=== PATIENT | female | born 1990 | race Caucasian/White ===

== ENCOUNTER 2017-03-12 18:36 | Emergency (ER) | payer OTHER ==
--- NOTE | 2017-03-12 19:12 | ED CLINICAL REPORT ---
Clinical Report - Physicians/Mid Levels [facility] [address] [place] [address] 03/12/2017 18:40 [id number] Time Seen: 19:16 Mar 12 2017. Arrived- By private vehicle. HISTORY OF PRESENT ILLNESS Chief Complaint: DENTAL PAIN. This started today and is still present. Pain described as mild. No mouth sores or nasal discharge. (, LMP Mid December, presents with dental pain since this morning, has had dental pain for a little bit. Denies difficulty swallowing. Denies any shortness of breath or chest pain. Patient denies any fevers. Reports some openings to the area recently. Denies facial swelling.). REVIEW OF SYSTEMS No fever or headache. All systems otherwise negative, except as recorded above. PAST HISTORY Problems: . Substance Abuse. Bronchitis. Myofascial Strain. Vaginal Bleeding. Additional Surgeries: no known surgeries. Medications: Plus Iron Oral. Vitamins Oral. Allergies: None. SOCIAL HISTORY Smoker- current status unknown. No alcohol use or drug use. ADDITIONAL NOTES The nursing notes have been reviewed. PHYSICAL EXAM Vital Signs: 03/12/2017 18:52 BP: 123/90. HR: 77. RR: 17. O2 saturation: 100%. Temp: 97.9 F. Pain level now: 4/10. Appearance: Alert. Head: Normal external inspection. ENT: Pharynx normal. Lips normal. Uvula midline. (Left lower gumline erythema, with tenderness, no palpable abscess or mass. Uvula midline. No lymphadenopathy.). Neck: Trachea midline. No adenopathy. No thyromegaly. CVS: Normal heart rate and rhythm. Heart sounds normal. Respiratory: No respiratory distress. Breath sounds normal. Abdomen: Gravid uterus palpable to just above pubic symphysis. Skin: Normal skin color. PROGRESS AND PROCEDURES Course of Care: NO signs of uvula swelling or any distress. Pt with no cough. No related complaints. Pt with no cough. Afebrile. NO signs of ludwigs angina. Patient is stable. Physical exam findings are unchanged. Symptoms better. Patient/family counseled. Disposition: Discharged. CLINICAL IMPRESSION First trimester ; positive test in emergency department. Moderate dental pain. INSTRUCTIONS Drink plenty of fluids. (avoid motrin follow up with dentist and OB). Prescription Medications: Amoxicillin 500 mg tablets: Take 1 orally every 8 hours for 10 days. Dispense thirty (30). No refills. vitamins: Take 1 orally every day. Dispense thirty (30). No refill. OTC Medications: Acetaminophen (available over the counter): take according to label instructions. Follow-up with: Corbin Baez MD, Obstetrics/Gynecology, , [facility], [address] [place] [address] (Electronically signed by Aminata Herrera P.A.-C 03/12/2017 19:42)
--- NOTE | 2017-03-12 19:12 | ED NURSING NOTES ---
Clinical Report - Nurses [facility] [address] [place] [address] 03/12/2017 18:40 Patient: JESIKA OLIVA TRIAGE Triage time 18:52 Mar 12 2017. Chief Complaint: LEFT LOWER TOOTHACHE and (pt reports brushing her teeth this morning and "something popped in my mouth" left lower). Alert. No acute distress. SEPSIS SCREEN: Sepsis Screen: negative. Negative (no infection suspected/documented). --18:58 Ayan Thompson R.N. 18:52 03/12/17. BP: 123/90. HR: 77. RR: 17. O2 saturation: 100%. Temp: 97.9 F. Pain level now: 03/02. --18:58 Ayan Thompson R.N. Weight: 50.8 kg stated. Height/Length: 64 inches Per Patient. BMI: 19.2. --18:51 Ayan Thompson R.N. Medications Vitamins Oral. --18:54 Ayan Thompson R.N. Plus Iron Oral. --18:54 Ayan Thompson R.N. Allergies None. --18:55 Ayan Thompson R.N. History Arrived by private vehicle. Historian: patient. Accompanied by friend. This started today. She has no dental appointment scheduled. She has a dental appointment scheduled (plan was to go to [facility] in [place]). She has had a toothache. 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 ("numbing medicine"). PAST MEDICAL HX: Immunizations: up-to-date. Last normal menstrual period- due per pt via pph 09/08/2017. Currently . G 4. P 3. SURGERY HX: No history of previous surgery. SOCIAL HX: Smoker- current status unknown. No alcohol use or drug use. No infectious disease exposure. ABUSE ASSESSMENT: No report of abuse. SELF HARM ASSESSMENT: A self harm assessment was performed. The patient answered "no" to the question "Have you recently felt down, depressed, or hopeless?", "Have you noticed less interest or pleasure in doing things?", "Do you have thoughts of harming or killing yourself?", "Are you here because you tried to hurt yourself?", "Have you ever tried to hurt yourself before today?", "Have you recently had thoughts about harming or killing others?" and "Do you have any dangerous items in your possession?". FALL RISK ASSESSMENT: Fall risk assessment completed. No fall risk identified. NUTRITIONAL RISK ASSESSMENT: The nutritional risk assessment revealed no deficiencies. FUNCTIONAL ASSESSMENT: Functional assessment: no impairments noted. LEARNING NEEDS ASSESSMENT: The learning needs assessment revealed no barriers. SKIN INTEGRITY ASSESSMENT: Skin integrity risk assessment completed. No skin integrity risk identified. --18:58 Ayan Thompson R.N. PROBLEMS: Substance Abuse. Bronchitis. Myofascial Strain. Vaginal Bleeding. --18:55 Ayan Thompson R.N. ADDITIONAL SURGERIES: no known surgeries. Interventions ID and allergy band on patient. To treatment room. --18:58 Ayan Thompson R.N. PHYSICAL ASSESSMENT Ambulatory to room. Patient gowned. GENERAL / NEURO / PSYCH: Alert. Oriented X 4. Appears in no acute distress. HEENT: Pupils equal, round and reactive to light. Voice within normal limits. Moderate dental tenderness. Extensive dental decay. Mucous membranes are pink. RESPIRATORY: Respirations not labored. CVS: Capillary refill less than 2 seconds. SKIN: Skin is warm and dry. Normal skin turgor. --18:59 Ayan Thompson R.N. NURSING PROGRESS NOTES Patient gowned. Head of bed elevated. Reassurance given. Two patient identifiers checked. Call light placed in reach. Side rails up x 1. Bed placed in lowest position. Brakes of bed on. Patient ready for evaluation- chart flagged. --18:59 Ayan Thompson R.N. 19:18 03/12/2017 Amoxicillin PO Capsules 500 mg given. Allergies verified and confirmed 5 rights. --19:20 Lynnette Sánchez R.N. 19:20 03/12/2017 Zofran ODT (Ondansetron) PO Oral Disintegrating Tablets 4 mg given. Allergies verified and confirmed 5 rights. --19:20 Lynnette Sánchez R.N. DISPOSITION / DISCHARGE No learning barriers present. Discharge instructions provided and reviewed with the patient. Reviewed medication(s) side effects and course information. Prescription(s) given to the patient. Reviewed need to stop smoking- provided smoking cessation counseling. Patient verbalized understanding. Written instructions provided in Singaporean. The patient was discharged by the physician promotions assistant sales marketing. She was discharged home and accompanied by radiology teacher. She left the Emergency Department ambulatory and via private vehicle. Driving (unknown). ( pt given rx and f/u, enc to stop smoking and f/u as directed per dc instructions). --19:33 Ayan Thompson R.N. 19:31 03/12/17. BP: 121/81 taken on the left arm, while sitting. HR: 72. RR: 17. O2 saturation: 99% on room air. Temp: 97.7 F (oral). Pain level now: 03/02. --19:33 Ayan Thompson R.N. Locked/Released at 03/12/2017 22:12 by Ayan Thompson R.N.
--- NOTE | 2017-03-12 19:12 | ED ORDER SUMMARY ---
..... Patient: JESIKA OLIVA OrderSheet [facility] VisitID: [id number] [place] [address] 26y, F Registration Date/Time: 03/12/2017 ORDER SHEET Weight: 50.8 kg (stated) Allergies: None GENERAL ORDERS: MEDICATION ORDERS: Amoxicillin PO 500 mg (NOW) (19:06 03/12/2017 Ginger P.A.-C) (Ack 19:14 RCollier R.N.) (19:20 RCollier R.N.) Zofran ODT PO 4 mg (NOW) (19:19 03/12/2017 Ginger Ying.A.-C) (19:20 RCollier R.N.) IV FLUIDS: ORDER SHEET NOTES: [Electronically signed by Aminata Herrera P.A.-C (19:42 03/12/2017)] [Electronically signed by Ayan Thompson R.N. (22:12 03/12/2017)] [Electronically locked/signed by Ayan Thompson R.N. (22:12 03/12/2017)]
--- NOTE | 2017-03-12 19:12 | ED ORDER SUMMARY ---
..... Patient: JESIKA OLIVA OrderSheet [facility] VisitID: [id number] [place] [address] 26y, F Registration Date/Time: 03/12/2017 ORDER SHEET Weight: 50.8 kg (stated) Allergies: None GENERAL ORDERS: MEDICATION ORDERS: Amoxicillin PO 500 mg (NOW) (19:06 03/12/2017 Ginger P.A.-C) (Ack 19:14 RCollier R.N.) (19:20 RCollier R.N.) Zofran ODT PO 4 mg (NOW) (19:19 03/12/2017 Ginger Ying.A.-C) (19:20 RCollier R.N.) IV FLUIDS: ORDER SHEET NOTES: [Electronically signed by Aminata Herrera P.A.-C (19:42 03/12/2017)] [Electronically signed by Ayan Thompson R.N. (22:12 03/12/2017)] [Electronically locked/signed by Ayan Thompson R.N. (22:12 03/12/2017)]
--- NOTE | 2017-03-12 19:12 | ED CLINICAL REPORT ---
Clinical Report - Physicians/Mid Levels [facility] [address] [place] [address] 03/12/2017 18:40 [id number] Time Seen: 19:16 Mar 12 2017. Arrived- By private vehicle. HISTORY OF PRESENT ILLNESS Chief Complaint: DENTAL PAIN. This started today and is still present. Pain described as mild. No mouth sores or nasal discharge. (, LMP Mid December, presents with dental pain since this morning, has had dental pain for a little bit. Denies difficulty swallowing. Denies any shortness of breath or chest pain. Patient denies any fevers. Reports some openings to the area recently. Denies facial swelling.). REVIEW OF SYSTEMS No fever or headache. All systems otherwise negative, except as recorded above. PAST HISTORY Problems: . Substance Abuse. Bronchitis. Myofascial Strain. Vaginal Bleeding. Additional Surgeries: no known surgeries. Medications: Plus Iron Oral. Vitamins Oral. Allergies: None. SOCIAL HISTORY Smoker- current status unknown. No alcohol use or drug use. ADDITIONAL NOTES The nursing notes have been reviewed. PHYSICAL EXAM Vital Signs: 03/12/2017 18:52 BP: 123/90. HR: 77. RR: 17. O2 saturation: 100%. Temp: 97.9 F. Pain level now: 4/10. Appearance: Alert. Head: Normal external inspection. ENT: Pharynx normal. Lips normal. Uvula midline. (Left lower gumline erythema, with tenderness, no palpable abscess or mass. Uvula midline. No lymphadenopathy.). Neck: Trachea midline. No adenopathy. No thyromegaly. CVS: Normal heart rate and rhythm. Heart sounds normal. Respiratory: No respiratory distress. Breath sounds normal. Abdomen: Gravid uterus palpable to just above pubic symphysis. Skin: Normal skin color. PROGRESS AND PROCEDURES Course of Care: NO signs of uvula swelling or any distress. Pt with no cough. No related complaints. Pt with no cough. Afebrile. NO signs of ludwigs angina. Patient is stable. Physical exam findings are unchanged. Symptoms better. Patient/family counseled. Disposition: Discharged. CLINICAL IMPRESSION First trimester ; positive test in emergency department. Moderate dental pain. INSTRUCTIONS Drink plenty of fluids. (avoid motrin follow up with dentist and OB). Prescription Medications: Amoxicillin 500 mg tablets: Take 1 orally every 8 hours for 10 days. Dispense thirty (30). No refills. vitamins: Take 1 orally every day. Dispense thirty (30). No refill. OTC Medications: Acetaminophen (available over the counter): take according to label instructions. Follow-up with: Corbin Baez MD, Obstetrics/Gynecology, , [facility], [address] [place] [address] (Electronically signed by Aminata Herrera P.A.-C 03/12/2017 19:42)
--- NOTE | 2017-03-12 19:12 | ED NURSING NOTES ---
Clinical Report - Nurses [facility] [address] [place] [address] 03/12/2017 18:40 Patient: JESIKA OLIVA TRIAGE Triage time 18:52 Mar 12 2017. Chief Complaint: LEFT LOWER TOOTHACHE and (pt reports brushing her teeth this morning and "something popped in my mouth" left lower). Alert. No acute distress. SEPSIS SCREEN: Sepsis Screen: negative. Negative (no infection suspected/documented). --18:58 Ayan Thompson R.N. 18:52 03/12/17. BP: 123/90. HR: 77. RR: 17. O2 saturation: 100%. Temp: 97.9 F. Pain level now: 03/02. --18:58 Ayan Thompson R.N. Weight: 50.8 kg stated. Height/Length: 64 inches Per Patient. BMI: 19.2. --18:51 Ayan Thompson R.N. Medications Vitamins Oral. --18:54 Ayan Thompson R.N. Plus Iron Oral. --18:54 Ayan Thompson R.N. Allergies None. --18:55 Ayan Thompson R.N. History Arrived by private vehicle. Historian: patient. Accompanied by friend. This started today. She has no dental appointment scheduled. She has a dental appointment scheduled (plan was to go to [facility] in [place]). She has had a toothache. 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 ("numbing medicine"). PAST MEDICAL HX: Immunizations: up-to-date. Last normal menstrual period- due per pt via pph 09/08/2017. Currently . G 4. P 3. SURGERY HX: No history of previous surgery. SOCIAL HX: Smoker- current status unknown. No alcohol use or drug use. No infectious disease exposure. ABUSE ASSESSMENT: No report of abuse. SELF HARM ASSESSMENT: A self harm assessment was performed. The patient answered "no" to the question "Have you recently felt down, depressed, or hopeless?", "Have you noticed less interest or pleasure in doing things?", "Do you have thoughts of harming or killing yourself?", "Are you here because you tried to hurt yourself?", "Have you ever tried to hurt yourself before today?", "Have you recently had thoughts about harming or killing others?" and "Do you have any dangerous items in your possession?". FALL RISK ASSESSMENT: Fall risk assessment completed. No fall risk identified. NUTRITIONAL RISK ASSESSMENT: The nutritional risk assessment revealed no deficiencies. FUNCTIONAL ASSESSMENT: Functional assessment: no impairments noted. LEARNING NEEDS ASSESSMENT: The learning needs assessment revealed no barriers. SKIN INTEGRITY ASSESSMENT: Skin integrity risk assessment completed. No skin integrity risk identified. --18:58 Ayan Thompson R.N. PROBLEMS: Substance Abuse. Bronchitis. Myofascial Strain. Vaginal Bleeding. --18:55 Ayan Thompson R.N. ADDITIONAL SURGERIES: no known surgeries. Interventions ID and allergy band on patient. To treatment room. --18:58 Ayan Thompson R.N. PHYSICAL ASSESSMENT Ambulatory to room. Patient gowned. GENERAL / NEURO / PSYCH: Alert. Oriented X 4. Appears in no acute distress. HEENT: Pupils equal, round and reactive to light. Voice within normal limits. Moderate dental tenderness. Extensive dental decay. Mucous membranes are pink. RESPIRATORY: Respirations not labored. CVS: Capillary refill less than 2 seconds. SKIN: Skin is warm and dry. Normal skin turgor. --18:59 Ayan Thompson R.N. NURSING PROGRESS NOTES Patient gowned. Head of bed elevated. Reassurance given. Two patient identifiers checked. Call light placed in reach. Side rails up x 1. Bed placed in lowest position. Brakes of bed on. Patient ready for evaluation- chart flagged. --18:59 Ayan Thompson R.N. 19:18 03/12/2017 Amoxicillin PO Capsules 500 mg given. Allergies verified and confirmed 5 rights. --19:20 Lynnette Sánchez R.N. 19:20 03/12/2017 Zofran ODT (Ondansetron) PO Oral Disintegrating Tablets 4 mg given. Allergies verified and confirmed 5 rights. --19:20 Lynnette Sánchez R.N. DISPOSITION / DISCHARGE No learning barriers present. Discharge instructions provided and reviewed with the patient. Reviewed medication(s) side effects and course information. Prescription(s) given to the patient. Reviewed need to stop smoking- provided smoking cessation counseling. Patient verbalized understanding. Written instructions provided in Czech. The patient was discharged by the physician nutritional assistant. She was discharged home and accompanied by utility teller. She left the Emergency Department ambulatory and via private vehicle. Driving (unknown). ( pt given rx and f/u, enc to stop smoking and f/u as directed per dc instructions). --19:33 Ayan Thompson R.N. 19:31 03/12/17. BP: 121/81 taken on the left arm, while sitting. HR: 72. RR: 17. O2 saturation: 99% on room air. Temp: 97.7 F (oral). Pain level now: 03/02. --19:33 Ayan Thompson R.N. Locked/Released at 03/12/2017 22:12 by Ayan Thompson R.N.
--- NOTE | 2017-03-12 22:12 | ED MED RECONCILIATION SUMMARY ---
Patient: JESIKA OLIVA Medication Reconciliation Report [facility] VisitID: [id number] [place] [address] 26y, F Registration Date/Time: 03/12/2017 Weight: 50.8 kg Height/Length: 64 in. BMI: 19.2 ALLERGIES: None The patient's Home Medications are listed below: THE FOLLOWING MEDICATIONS NEED TO BE RECONCILED: Plus Iron Oral Vitamins Oral The source(s) of the original Home Medication information: Not obtained. The following Medications were given to the patient in the Emergency Department: Amoxicillin [PO] PO 500 mg, administered: 03/12/2017 7:18:00 PM Zofran ODT [PO] PO 4 mg, administered: 03/12/2017 7:20:00 PM The following Medications were prescribed to the patient: Acetaminophen (available over the counter): take according to label instructions. -- Aminata Herrera P.A.-Daisy Amoxicillin 500 mg tablets: Take 1 orally every 8 hours for 10 days. Dispense thirty (30). No refills. -- Aminata Herrera, P.A.-C vitamins: Take 1 orally every day. Dispense thirty (30). No refill. -- Aminata Herrera P.A.-C
--- NOTE | 2017-03-12 22:12 | ED MED RECONCILIATION SUMMARY ---
Patient: JESIKA OLIVA Medication Reconciliation Report [facility] VisitID: [id number] [place] [address] 26y, F Registration Date/Time: 03/12/2017 Weight: 50.8 kg Height/Length: 64 in. BMI: 19.2 ALLERGIES: None The patient's Home Medications are listed below: THE FOLLOWING MEDICATIONS NEED TO BE RECONCILED: Plus Iron Oral Vitamins Oral The source(s) of the original Home Medication information: Not obtained. The following Medications were given to the patient in the Emergency Department: Amoxicillin [PO] PO 500 mg, administered: 03/12/2017 7:18:00 PM Zofran ODT [PO] PO 4 mg, administered: 03/12/2017 7:20:00 PM The following Medications were prescribed to the patient: Acetaminophen (available over the counter): take according to label instructions. -- Aminata Herrera P.A.-Daisy Amoxicillin 500 mg tablets: Take 1 orally every 8 hours for 10 days. Dispense thirty (30). No refills. -- Aminata Herrera, P.A.-C vitamins: Take 1 orally every day. Dispense thirty (30). No refill. -- Aminata Herrera P.A.-C
--- NOTE | 2017-03-12 22:12 | ED MAR SUMMARY ---
..... Medication Administration Record [facility] [address] [place] [address] Patient: JESIKA OLIVA Visit ID: [id number] 26y, F Weight: 50.8 kg Height/Length: 64 in BMI: 19.2 ALLERGIES: None Given 19:03/12/2017 Lynnette Sánchez, R.N. Medication Administered: AMOXICILLIN [PO], Dose: 500 mg Capsules PO. Medication Ordered: Amoxicillin PO 500 mg (NOW). Given 19:03/12/2017 Lynnette Sánchez, R.N. Medication Administered: ZOFRAN ODT [PO] (ONDANSETRON), Dose: 4 mg Oral Disintegrating Tablets PO. Medication Ordered: Zofran ODT PO 4 mg (NOW).
--- NOTE | 2017-03-12 22:12 | ED DISCHARGE INSTRUCTIONS ---
Patient: JESIKA OLIVA General Instructions [facility] VisitID: [id number] [place] [address] 26y, [place] Registration Date/Time: 03/12/2017 First trimester ; positive test in emergency department. Moderate dental pain. INSTRUCTIONS Drink plenty of fluids. (avoid motrin follow up with dentist and OB). Prescription Medications: Amoxicillin 500 mg tablets: Take 1 orally every 8 hours for 10 days. Dispense thirty (30). No refills. vitamins: Take 1 orally every day. Dispense thirty (30). No refill. OTC Medications: Acetaminophen (available over the counter): take according to label instructions. Follow-up with: Corbin Baez MD, Obstetrics/Gynecology, , [facility], [address] [place] [address] ADDITIONAL INFORMATION Dental Pain A crack or cavity in the tooth, which exposes the sensitive inner area of the tooth can cause tooth pain. An infection in the gum or the root of the tooth can cause pain and swelling. The pain is often made worse by drinking hot or cold fluids, or biting on hard foods. Pain may spread from the tooth to the ear or jaw on the same side. Home Care: Avoid hot and cold foods and liquids since your tooth may be sensitive to temperature changes. If your tooth is chipped or cracked, or if there is a large open cavity, apply OIL OF CLOVES (available [id number] in drug stores) directly to the tooth to reduce pain. Some pharmacies carry an [id number] "toothache kit." This contains a paste, which can be applied over the exposed tooth to decrease sensitivity. A cold pack on your jaw over the sore area may help reduce pain. You may use acetaminophen (Tylenol) or ibuprofen (Motrin, Advil) to control pain, unless another medicine was prescribed. [ NOTE: If you have chronic liver or kidney disease or ever had a stomach ulcer or GI bleeding, talk with your doctor before using these medicines.] If you have signs of an infection, an antibiotic will be given. Take it as directed. Follow-Up as directed with a dentist. Your pain may go away with the treatment given. However, only a dentist can fully evaluate and treat the cause and prevent the pain from coming back again. TOOTHACHE IS A SIGN OF DISEASE IN YOUR TOOTH AND SHOULD BE EXAMINED AND TREATED BY A DENTIST. Get Prompt Medical Attention if any of the following occur: Your face becomes swollen or red Pain worsens or spreads to the neck Fever over 100.4 F (38.0 C) Unusual drowsiness; headache or stiff neck; weakness or fainting Pus drains from the tooth Difficulty swallowing or breathing You have been given the following additional information: Dental Pain (Electronically signed by Aminata Herrera P.A.-C 03/12/2017 19:42)
--- NOTE | 2017-03-12 22:12 | ED MAR SUMMARY ---
..... Medication Administration Record [facility] [address] [place] [address] Patient: JESIKA OLIVA Visit ID: [id number] 26y, F Weight: 50.8 kg Height/Length: 64 in BMI: 19.2 ALLERGIES: None Given 19:03/12/2017 Lynnette Sánchez, R.N. Medication Administered: AMOXICILLIN [PO], Dose: 500 mg Capsules PO. Medication Ordered: Amoxicillin PO 500 mg (NOW). Given 19:03/12/2017 Lynnette Sánchez, R.N. Medication Administered: ZOFRAN ODT [PO] (ONDANSETRON), Dose: 4 mg Oral Disintegrating Tablets PO. Medication Ordered: Zofran ODT PO 4 mg (NOW).
--- NOTE | 2017-03-12 22:12 | ED DISCHARGE INSTRUCTIONS ---
Patient: JESIKA OLIVA General Instructions [facility] VisitID: [id number] [place] [address] 26y, F Registration Date/Time: 03/12/2017 First trimester ; positive test in emergency department. Moderate dental pain. INSTRUCTIONS Drink plenty of fluids. (avoid motrin follow up with dentist and OB). Prescription Medications: Amoxicillin 500 mg tablets: Take 1 orally every 8 hours for 10 days. Dispense thirty (30). No refills. vitamins: Take 1 orally every day. Dispense thirty (30). No refill. OTC Medications: Acetaminophen (available over the counter): take according to label instructions. Follow-up with: Corbin Baez MD, Obstetrics/Gynecology, , [facility], [address] [place] [address] ADDITIONAL INFORMATION Dental Pain A crack or cavity in the tooth, which exposes the sensitive inner area of the tooth can cause tooth pain. An infection in the gum or the root of the tooth can cause pain and swelling. The pain is often made worse by drinking hot or cold fluids, or biting on hard foods. Pain may spread from the tooth to the ear or jaw on the same side. Home Care: Avoid hot and cold foods and liquids since your tooth may be sensitive to temperature changes. If your tooth is chipped or cracked, or if there is a large open cavity, apply OIL OF CLOVES (available dmre-esn-gbtbgcc in drug stores) directly to the tooth to reduce pain. Some pharmacies carry an cfxe-puz-iigwlhf "toothache kit." This contains a paste, which can be applied over the exposed tooth to decrease sensitivity. A cold pack on your jaw over the sore area may help reduce pain. You may use acetaminophen (Tylenol) or ibuprofen (Motrin, Advil) to control pain, unless another medicine was prescribed. [ NOTE: If you have chronic liver or kidney disease or ever had a stomach ulcer or GI bleeding, talk with your doctor before using these medicines.] If you have signs of an infection, an antibiotic will be given. Take it as directed. Follow-Up as directed with a dentist. Your pain may go away with the treatment given. However, only a dentist can fully evaluate and treat the cause and prevent the pain from coming back again. TOOTHACHE IS A SIGN OF DISEASE IN YOUR TOOTH AND SHOULD BE EXAMINED AND TREATED BY A DENTIST. Get Prompt Medical Attention if any of the following occur: Your face becomes swollen or red Pain worsens or spreads to the neck Fever over 100.4 F (38.0 C) Unusual drowsiness; headache or stiff neck; weakness or fainting Pus drains from the tooth Difficulty swallowing or breathing You have been given the following additional information: Dental Pain (Electronically signed by Aminata Herrera P.A.-C 03/12/2017 19:42)
== END 2017-03-12 19:27 | disposition home or self-care (01) ==
LOC: ED SRH 18:36
DX: O26.891 Other specified pregnancy related conditions, first trimester (principal); K08.89 Other specified disorders of teeth and supporting structures

== ENCOUNTER 2017-04-25 13:27 | Emergency (ER) | payer OTHER ==
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
--- NOTE | 2017-04-25 13:56 | ED ORDER SUMMARY ---
..... Patient: JESIKA OLIVA OrderSheet [facility] VisitID: [id number] [place] [address] 26y, F Registration Date/Time: 04/25/2017 ORDER SHEET Weight: 49.4 kg (stated) Allergies: None GENERAL ORDERS: MEDICATION ORDERS: Keflex PO 500 mg (NOW) (13:46 04/25/2017 Duyen Villarreal) (13:48 Guillermina R.N.) Clindamycin PO 450 mg (NOW) (13:46 04/25/2017 Duyen Villarreal) (13:49 Guillermina R.N.) Phenergan PO 25 mg (HIGH ALERT MEDICATION, NOW) (13:46 04/25/2017 Duyen Villarreal) (13:49 Guillermina R.N.) IV FLUIDS: ORDER SHEET NOTES: [Electronically signed by Lg Villagomez Dr. (09:33 04/28/2017)] [Electronically signed by Ayan Thompson R.N. (17:45 04/29/2017)] [Electronically locked/signed by Ayan Thompson R.N. (17:45 04/29/2017)]
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
--- NOTE | 2017-04-25 13:56 | ED ORDER SUMMARY ---
..... Patient: JESIKA OLIVA OrderSheet [facility] VisitID: [id number] [place] [address] 26y, F Registration Date/Time: 04/25/2017 ORDER SHEET Weight: 49.4 kg (stated) Allergies: None GENERAL ORDERS: MEDICATION ORDERS: Keflex PO 500 mg (NOW) (13:46 04/25/2017 Duyen Villarreal) (13:48 Guillermina R.N.) Clindamycin PO 450 mg (NOW) (13:46 04/25/2017 Duyen Villarreal) (13:49 Guillermina R.N.) Phenergan PO 25 mg (HIGH ALERT MEDICATION, NOW) (13:46 04/25/2017 Duyen Villarreal) (13:49 Guillermina R.N.) IV FLUIDS: ORDER SHEET NOTES: [Electronically signed by Lg Villagomez Dr. (09:33 04/28/2017)] [Electronically signed by Ayan Thompson R.N. (17:45 04/29/2017)] [Electronically locked/signed by Ayan Thompson R.N. (17:45 04/29/2017)]
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
--- NOTE | 2017-04-29 17:45 | ED DISCHARGE INSTRUCTIONS ---
Patient: JESIKA OLIVA General Instructions [facility] VisitID: [id number] [address], [place] [address] 26y, F Registration Date/Time: 04/25/2017 Cellulitis of the left hand. INSTRUCTIONS Warnings: GENERAL WARNINGS: Return or contact your physician immediately if your condition worsens or changes unexpectedly, if not improving as expected, or if other problems arise. Specifically return if pain, vomiting, bleeding, breathing difficulty or fever. Your Current Medications: CONTINUE TAKING THE FOLLOWING MEDICATIONS: Methadone HCl Oral : 30 mg daily. Vitamins Oral. Prescription Medications: Clindamycin 150 mg: take 3 capsules orally every 8 hours for 10 days. No refill. (disp suff quant) Keflex 500 mg: take 1 capsule orally every 8 hours for 10 days. No refill. Substitution is permissible. (disp suff quant) Phenergan Tablets 25 mg: take 1 tablet orally every 8 hours as needed for nausea and vomiting. Dispense thirty (30). No refill. Substitution is permissible Follow-up: Return to the emergency department as needed. Follow up with your doctor in three days. Reason for referral: recheck today's concerns. Summary of care provided to patient via paper. Screening today revealed the patient's blood pressure to be in the normal range. The patient should follow up with a primary care provider for blood pressure management. Understanding of the discharge instructions verbalized by patient. Follow-up with: [facility], , , [address], , [place], [id number] Follow up. Reason for referral: contact for follow up if you can not see your primary care doctor. Summary of care provided to patient via paper. ADDITIONAL INFORMATION Cellulitis You have an infection of the skin known as cellulitis. This usually starts with a scrape, cut, insect bite, blister or other opening in the skin which becomes infected. This is a serious condition. It must be watched closely to be sure the infection is not spreading. With antibiotic treatment, the size of the red area will gradually shrink in size until the skin returns to normal. This will take 7-10 days. The red area should never increase in size once the antibiotic medicine has been started. Occasionally, an infection will be resistant to one antibiotic and another one will have to be used. Home Care: 1) Limit the use of the affected part, since excess movement can cause the infection to spread. 2) If the infection is on your leg, walk as little as possible during the first few days of the treatment. Keep your leg elevated while sitting. This will reduce swelling. 3) Take all of the antibiotic medicine exactly as directed until it is gone. Be careful not to miss any doses, especially during the first seven days. Follow Up with your doctor or this facility as directed. Check the infected area daily for the warning signs listed below. Get Prompt Medical Attention if any of the following occur: -- Spreading area of redness -- Increasing swelling or pain -- Appearance of pus or drainage -- Fever over 100.4 F (38.0 C) oral, or over 101.4 F (38.6 C) rectal, after two days on antibiotics Staph Infection (MRSA) "Staph" is the short name for the common bacteria called "staphylococcus aureus". Staph bacteria are often present on the skin without causing an infection. If it gets under the skin an infection occurs. This causes redness, tenderness, swelling and sometimes fluid drainage. MRSA stands for "Methicillin-Resistant Staph Aureus". Unlike a common staph infection, MRSA bacteria are resistant to the usual antibiotics and harder to treat. Also, MRSA is more toxic than common staph bacteria. It can spread quickly throughout the body and cause a life-threatening illness. MRSA is spread to others by direct physical contact with the bacteria. MRSA can also be transmitted from items contaminated by a person who has the bacteria, such as bandages, towels, bed sheets, or sports equipment. It is not spread through the air. Once you have a MRSA skin infection, you are at risk of having it recur in the future. If MRSA infection is suspected, the doctor may take a wound culture to confirm the diagnosis. Any abscess will be drained. One or sometimes two antibiotics that work against MRSA will be prescribed. Home Care: 1) Take any antibiotics prescribed exactly as directed until they are gone. 2) Follow the same washing procedures as outlined for Household Members below. 3) Keep draining wounds covered with clean, dry bandages. Change dressings as they become soiled. 4) You and those in contact with you should wash their hands frequently with soap and warm water or use an alcohol-based hand heel stainer. Do this after each time you change the bandage or touch the wound. 5) Avoid sharing personal items such as towels, washcloths, razors, clothing, or uniforms. Wash soiled sheets, towels or clothes in hot water with laundry detergent. Use an automatic clothes dryer set on high to kill any remaining bacteria. 6) Remove any artificial nails and nail [place]. 7) If you use a gym, wipe down equipment before and after each use. Treatment Of Household Members If you have been diagnosed with possible MRSA infection, those living with you are at higher risk of carrying the bacteria on their skin or in their nose, even if there is no sign of infection. Bacteria must be removed from the skin of all household members (including you) at the same time, so that it is not passed back and forth. Advise them to remove the bacteria as follows: Wash your whole body (scalp to toes) daily for five days with Hibiclens (chlorhexidine). Scrub fingernails with a brush for one minute twice a day. If any skin infections are present (boils, abscess, infected cut) these must be treated by a doctor. Washing alone will not treat a MRSA infection. Clean counter tops and children's toys; do not share personal items such as toothbrush and razors. It is okay to share glasses, plates, utensils. If antibiotic ointment was prescribed use it as directed. Follow Up with your doctor or as advised by our staff. If a wound culture was taken, call as directed in two days to obtain the results. If the culture result is positive for MRSA, tell medical personnel in the future that you were treated for this type of infection. Get Prompt Medical Attention if any of the following occur: -- Increasing redness, swelling or pain -- Red streaks in the skin around the wound -- Weakness or dizziness -- New appearance of pus or drainage from the wound -- New fever over 100.4 F (38.0 C) Clindamycin Hydrochloride Oral capsule What is this medicine? CLINDAMYCIN (KLIN da MYE sin) is a lincosamide antibiotic. It is used to treat certain kinds of bacterial infections. It will not work for colds, flu, or other viral infections. How should I use this medicine? Take this medicine by mouth with a full glass of water. Follow the directions on the prescription label. You can take this medicine with food or on an empty stomach. If the medicine upsets your stomach, take it with food. Take your medicine at regular intervals. Do not take your medicine more often than directed. Take all of your medicine as directed even if you think your are better. Do not skip doses or stop your medicine early. Talk to your damage prevention coordinator regarding the use of this medicine in children. Special care may be needed. What side effects may I notice from receiving this medicine? Side effects that you should report to your doctor or health regular senior care provider as soon as possible: allergic reactions like skin rash, itching or hives, swelling of the face, lips, or tongue dark urine pain on swallowing redness, blistering, peeling or loosening of the skin, including inside the mouth unusual bleeding or bruising unusually weak or tired yellowing of eyes or skin Side effects that usually do not require medical attention (report to your doctor or health regular senior care provider if they continue or are bothersome): diarrhea itching in the rectal or genital area joint pain nausea, vomiting stomach pain What may interact with this medicine? chloramphenicol erythromycin kaolin products What if I miss a dose? If you miss a dose, take it as soon as you can. If it is almost time for your next dose, take only that dose. Do not take double or extra doses. Where should I keep my medicine? Keep out of the reach of children. Store at room temperature between 20 and 25 degrees C (68 and 77 degrees F). Throw away any unused medicine after the expiration date. What should I tell my health care provider before I take this medicine? They need to know if you have any of these conditions: kidney disease liver disease stomach problems like colitis an unusual or allergic reaction to clindamycin, lincomycin, or other medicines, foods, dyes like tartrazine or preservatives or trying to get breast-feeding What should I watch for while using this medicine? Tell your doctor or healthcare professional if your symptoms do not start to get better or if they get worse. Do not treat diarrhea with over the counter products. Contact your doctor if you have diarrhea that lasts more than 2 days or if it is severe and watery. Cephalexin Monohydrate Oral tablet What is this medicine? CEPHALEXIN (sef a FELIPA in) is a cephalosporin antibiotic. It is used to treat certain kinds of bacterial infections It will not work for colds, flu, or other viral infections. How should I use this medicine? Take this medicine by mouth with a full glass of water. Follow the directions on the prescription label. This medicine can be taken with or without food. Take your medicine at regular intervals. Do not take your medicine more often than directed. Take all of your medicine as directed even if you think you are better. Do not skip doses or stop your medicine early. Talk to your damage prevention coordinator regarding the use of this medicine in children. While this drug may be prescribed for selected conditions, precautions do apply. What side effects may I notice from receiving this medicine? Side effects that you should report to your doctor or health regular senior care provider as soon as possible: allergic reactions like skin rash, itching or hives, swelling of the face, lips, or tongue breathing problems pain or trouble passing urine redness, blistering, peeling or loosening of the skin, including inside the mouth severe or watery diarrhea unusually weak or tired yellowing of the eyes, skin Side effects that usually do not require medical attention (report to your doctor or health regular senior care provider if they continue or are bothersome): gas or heartburn genital or anal irritation headache joint or muscle pain nausea, vomiting What may interact with this medicine? probenecid some other antibiotics What if I miss a dose? If you miss a dose, take it as soon as you can. If it is almost time for your next dose, take only that dose. Do not take double or extra doses. There should be at least 4 to 6 hours between doses. Where should I keep my medicine? Keep out of the reach of children. Store at room temperature between 59 and 86 degrees F (15 and 30 degrees C). Throw away any unused medicine after the expiration date. What should I tell my health care provider before I take this medicine? They need to know if you have any of these conditions: kidney disease stomach or intestine problems, especially colitis an unusual or allergic reaction to cephalexin, other cephalosporins, penicillins, other antibiotics, medicines, foods, dyes or preservatives or trying to get breast-feeding What should I watch for while using this medicine? Tell your doctor or health regular senior care provider if your symptoms do not begin to improve in a few days. Do not treat diarrhea with over the counter products. Contact your doctor if you have diarrhea that lasts more than 2 days or if it is severe and watery. If you have diabetes, you may get a false-positive result for sugar in your urine. Check with your doctor or health regular senior care provider. Promethazine Hydrochloride Oral tablet What is this medicine? PROMETHAZINE (proe METH a zeen) is an antihistamine. It is used to treat allergic reactions and to treat or prevent nausea and vomiting from illness or motion sickness. It is also used to make you sleep before surgery, and to help treat pain or nausea after surgery. How should I use this medicine? Take this medicine by mouth with a glass of water. Follow the directions on the prescription label. Take your doses at regular intervals. Do not take your medicine more often than directed. Talk to your damage prevention coordinator regarding the use of this medicine in children. Special care may be needed. This medicine should not be given to infants and children younger than 2 years old. What side effects may I notice from receiving this medicine? Side effects that you should report to your doctor or health regular senior care provider as soon as possible: blurred vision irregular heartbeat, palpitations or chest pain muscle or facial twitches pain or difficulty passing urine seizures skin rash slowed or shallow breathing unusual bleeding or bruising yellowing of the eyes or skin Side effects that usually do not require medical attention (report to your doctor or health regular senior care provider if they continue or are bothersome): headache nightmares, agitation, nervousness, excitability, not able to sleep (these are more likely in children) stuffy nose What may interact with this medicine? Do not take this medicine with any of the following medications: medicines called MAO Inhibitors like Nardil, Parnate, Marplan, Eldepryl other phenothiazines like trimethobenzamide This medicine may also interact with the following medications: barbiturates like phenobarbital bromocriptine certain antidepressants certain antihistamines used in allergy or cold medicines epinephrine levodopa medicines for sleep medicines for mental problems and psychotic disturbances medicines for movement abnormalities as in Parkinson's disease, or for gastrointestinal problems muscle relaxants prescription pain medicines What if I miss a dose? If you miss a dose, take it as soon as you can. If it is almost time for your next dose, take only that dose. Do not take double or extra doses. Where should I keep my medicine? Keep out of the reach of children. Store at room temperature, between 20 and 25 degrees C (68 and 77 degrees F). Protect from light. Throw away any unused medicine after the expiration date. What should I tell my health care provider before I take this medicine? They need to know if you have any of these conditions: glaucoma high blood pressure or heart disease kidney disease liver disease lung or breathing disease, like asthma prostate trouble pain or difficulty passing urine seizures an unusual or allergic reaction to promethazine or phenothiazines, other medicines, foods, dyes, or preservatives or trying to get breast-feeding What should I watch for while using this medicine? Tell your doctor or health regular senior care provider if your symptoms do not start to get better in 1 to 2 days. You may get drowsy or dizzy. Do not drive, use machinery, or do anything that needs mental alertness until you know how this medicine affects you. To reduce the risk of dizzy or fainting spells, do not stand or sit up quickly, especially if you are an older patient. Alcohol may increase dizziness and drowsiness. Avoid alcoholic drinks. Your mouth may get dry. Chewing sugarless gum or sucking hard candy, and drinking plenty of water may help. Contact your doctor if the problem does not go away or is severe. This medicine may cause dry eyes and blurred vision. If you wear contact lenses you may feel some discomfort. Lubricating drops may help. See your eye doctor if the problem does not go away or is severe. This medicine can make you more sensitive to the sun. Keep out of the sun. If you cannot avoid being in the sun, wear protective clothing and use sunscreen. Do not use sun lamps or tanning beds/booths. If you are diabetic, check your blood-sugar levels regularly. You have been given the following additional information: Cellulitis MRSA Skin Infection, Suspected Or Confirmed Clindamycin Hydrochloride Oral capsule Cephalexin Monohydrate Oral tablet Promethazine Hydrochloride Oral tablet (Electronically signed by Lg Villagomez Dr. 04/28/2017 9:33)
--- NOTE | 2017-04-29 17:45 | ED MED RECONCILIATION SUMMARY ---
Patient: JESIKA OLIVA Medication Reconciliation Report [facility] VisitID: [id number] [place] [address] 26y, F Registration Date/Time: 04/25/2017 Weight: 49.4 kg Height/Length: 58 in. BMI: 22.8 ALLERGIES: None The patient's Home Medications are listed below: CONTINUE TAKING THE FOLLOWING MEDICATIONS: Methadone HCl Oral 30 mg , daily Vitamins Oral The source(s) of the original Home Medication information: Not obtained. The following Medications were given to the patient in the Emergency Department: Keflex [PO] PO 500 mg, administered: 04/25/2017 1:48:00 PM Clindamycin [PO] PO 450 mg, administered: 04/25/2017 1:49:00 PM Phenergan [PO] PO 25 mg, administered: 04/25/2017 1:49:00 PM The following Medications were prescribed to the patient: Clindamycin 150 mg: take 3 capsules orally every 8 hours for 10 days. No refill.(disp suff quant) -- Lg Villagomez Dr. Keflex 500 mg: take 1 capsule orally every 8 hours for 10 days. No refill. Substitution is permissible.(disp suff quant) -- Lg Villagomez Dr. Phenergan Tablets 25 mg: take 1 tablet orally every 8 hours as needed for nausea and vomiting. Dispense thirty (30). No refill. Substitution is permissible -- Lg Villagomez Dr.
--- NOTE | 2017-04-29 17:45 | ED MAR SUMMARY ---
..... Medication Administration Record [facility] [address] [place] [address] Patient: JESIKA OLIVA Visit ID: [id number] 26y, F Weight: 49.4 kg Height/Length: 58 in BMI: 22.8 ALLERGIES: None Given 13:48 04/25/2017 Ayan Thompson RLesterNLester Medication Administered: KEFLEX [PO] (CEPHALEXIN), Dose: 500 mg PO. Medication Ordered: Keflex PO 500 mg (NOW). Given 13:49 04/25/2017 Ayan Thompson RLesterNLester Medication Administered: CLINDAMYCIN [PO], Dose: 450 mg PO. Medication Ordered: Clindamycin PO 450 mg (NOW). Given 13:49 04/25/2017 Ayan Thompson, R.NLester Medication Administered: PHENERGAN [PO] (PROMETHAZINE HCL), Dose: 25 mg PO. Medication Ordered: Phenergan PO 25 mg (HIGH ALERT MEDICATION, NOW).
--- NOTE | 2017-04-29 17:45 | ED DISCHARGE INSTRUCTIONS ---
Patient: JESIKA OLIVA General Instructions [facility] VisitID: [id number] [address], [place] [address] 26y, F Registration Date/Time: 04/25/2017 Cellulitis of the left hand. INSTRUCTIONS Warnings: GENERAL WARNINGS: Return or contact your physician immediately if your condition worsens or changes unexpectedly, if not improving as expected, or if other problems arise. Specifically return if pain, vomiting, bleeding, breathing difficulty or fever. Your Current Medications: CONTINUE TAKING THE FOLLOWING MEDICATIONS: Methadone HCl Oral : 30 mg daily. Vitamins Oral. Prescription Medications: Clindamycin 150 mg: take 3 capsules orally every 8 hours for 10 days. No refill. (disp suff quant) Keflex 500 mg: take 1 capsule orally every 8 hours for 10 days. No refill. Substitution is permissible. (disp suff quant) Phenergan Tablets 25 mg: take 1 tablet orally every 8 hours as needed for nausea and vomiting. Dispense thirty (30). No refill. Substitution is permissible Follow-up: Return to the emergency department as needed. Follow up with your doctor in three days. Reason for referral: recheck today's concerns. Summary of care provided to patient via paper. Screening today revealed the patient's blood pressure to be in the normal range. The patient should follow up with a primary care provider for blood pressure management. Understanding of the discharge instructions verbalized by patient. Follow-up with: [facility], , , [address], , [place], [id number] Follow up. Reason for referral: contact for follow up if you can not see your primary care doctor. Summary of care provided to patient via paper. ADDITIONAL INFORMATION Cellulitis You have an infection of the skin known as cellulitis. This usually starts with a scrape, cut, insect bite, blister or other opening in the skin which becomes infected. This is a serious condition. It must be watched closely to be sure the infection is not spreading. With antibiotic treatment, the size of the red area will gradually shrink in size until the skin returns to normal. This will take 7-10 days. The red area should never increase in size once the antibiotic medicine has been started. Occasionally, an infection will be resistant to one antibiotic and another one will have to be used. Home Care: 1) Limit the use of the affected part, since excess movement can cause the infection to spread. 2) If the infection is on your leg, walk as little as possible during the first few days of the treatment. Keep your leg elevated while sitting. This will reduce swelling. 3) Take all of the antibiotic medicine exactly as directed until it is gone. Be careful not to miss any doses, especially during the first seven days. Follow Up with your doctor or this facility as directed. Check the infected area daily for the warning signs listed below. Get Prompt Medical Attention if any of the following occur: -- Spreading area of redness -- Increasing swelling or pain -- Appearance of pus or drainage -- Fever over 100.4 F (38.0 C) oral, or over 101.4 F (38.6 C) rectal, after two days on antibiotics Staph Infection (MRSA) "Staph" is the short name for the common bacteria called "staphylococcus aureus". Staph bacteria are often present on the skin without causing an infection. If it gets under the skin an infection occurs. This causes redness, tenderness, swelling and sometimes fluid drainage. MRSA stands for "Methicillin-Resistant Staph Aureus". Unlike a common staph infection, MRSA bacteria are resistant to the usual antibiotics and harder to treat. Also, MRSA is more toxic than common staph bacteria. It can spread quickly throughout the body and cause a life-threatening illness. MRSA is spread to others by direct physical contact with the bacteria. MRSA can also be transmitted from items contaminated by a person who has the bacteria, such as bandages, towels, bed sheets, or sports equipment. It is not spread through the air. Once you have a MRSA skin infection, you are at risk of having it recur in the future. If MRSA infection is suspected, the doctor may take a wound culture to confirm the diagnosis. Any abscess will be drained. One or sometimes two antibiotics that work against MRSA will be prescribed. Home Care: 1) Take any antibiotics prescribed exactly as directed until they are gone. 2) Follow the same washing procedures as outlined for Household Members below. 3) Keep draining wounds covered with clean, dry bandages. Change dressings as they become soiled. 4) You and those in contact with you should wash their hands frequently with soap and warm water or use an alcohol-based hand shirring machine operator. Do this after each time you change the bandage or touch the wound. 5) Avoid sharing personal items such as towels, washcloths, razors, clothing, or uniforms. Wash soiled sheets, towels or clothes in hot water with laundry detergent. Use an automatic clothes dryer set on high to kill any remaining bacteria. 6) Remove any artificial nails and nail angolan. 7) If you use a gym, wipe down equipment before and after each use. Treatment Of Household Members If you have been diagnosed with possible MRSA infection, those living with you are at higher risk of carrying the bacteria on their skin or in their nose, even if there is no sign of infection. Bacteria must be removed from the skin of all household members (including you) at the same time, so that it is not passed back and forth. Advise them to remove the bacteria as follows: Wash your whole body (scalp to toes) daily for five days with Hibiclens (chlorhexidine). Scrub fingernails with a brush for one minute twice a day. If any skin infections are present (boils, abscess, infected cut) these must be treated by a doctor. Washing alone will not treat a MRSA infection. Clean counter tops and children's toys; do not share personal items such as toothbrush and razors. It is okay to share glasses, plates, utensils. If antibiotic ointment was prescribed use it as directed. Follow Up with your doctor or as advised by our staff. If a wound culture was taken, call as directed in two days to obtain the results. If the culture result is positive for MRSA, tell medical personnel in the future that you were treated for this type of infection. Get Prompt Medical Attention if any of the following occur: -- Increasing redness, swelling or pain -- Red streaks in the skin around the wound -- Weakness or dizziness -- New appearance of pus or drainage from the wound -- New fever over 100.4 F (38.0 C) Clindamycin Hydrochloride Oral capsule What is this medicine? CLINDAMYCIN (KLIN da MYE sin) is a lincosamide antibiotic. It is used to treat certain kinds of bacterial infections. It will not work for colds, flu, or other viral infections. How should I use this medicine? Take this medicine by mouth with a full glass of water. Follow the directions on the prescription label. You can take this medicine with food or on an empty stomach. If the medicine upsets your stomach, take it with food. Take your medicine at regular intervals. Do not take your medicine more often than directed. Take all of your medicine as directed even if you think your are better. Do not skip doses or stop your medicine early. Talk to your debt and budget counselor regarding the use of this medicine in children. Special care may be needed. What side effects may I notice from receiving this medicine? Side effects that you should report to your doctor or health career development facilitator as soon as possible: allergic reactions like skin rash, itching or hives, swelling of the face, lips, or tongue dark urine pain on swallowing redness, blistering, peeling or loosening of the skin, including inside the mouth unusual bleeding or bruising unusually weak or tired yellowing of eyes or skin Side effects that usually do not require medical attention (report to your doctor or health career development facilitator if they continue or are bothersome): diarrhea itching in the rectal or genital area joint pain nausea, vomiting stomach pain What may interact with this medicine? chloramphenicol erythromycin kaolin products What if I miss a dose? If you miss a dose, take it as soon as you can. If it is almost time for your next dose, take only that dose. Do not take double or extra doses. Where should I keep my medicine? Keep out of the reach of children. Store at room temperature between 20 and 25 degrees C (68 and 77 degrees F). Throw away any unused medicine after the expiration date. What should I tell my health care provider before I take this medicine? They need to know if you have any of these conditions: kidney disease liver disease stomach problems like colitis an unusual or allergic reaction to clindamycin, lincomycin, or other medicines, foods, dyes like tartrazine or preservatives or trying to get breast-feeding What should I watch for while using this medicine? Tell your doctor or healthcare professional if your symptoms do not start to get better or if they get worse. Do not treat diarrhea with over the counter products. Contact your doctor if you have diarrhea that lasts more than 2 days or if it is severe and watery. Cephalexin Monohydrate Oral tablet What is this medicine? CEPHALEXIN (sef a FELIPA in) is a cephalosporin antibiotic. It is used to treat certain kinds of bacterial infections It will not work for colds, flu, or other viral infections. How should I use this medicine? Take this medicine by mouth with a full glass of water. Follow the directions on the prescription label. This medicine can be taken with or without food. Take your medicine at regular intervals. Do not take your medicine more often than directed. Take all of your medicine as directed even if you think you are better. Do not skip doses or stop your medicine early. Talk to your debt and budget counselor regarding the use of this medicine in children. While this drug may be prescribed for selected conditions, precautions do apply. What side effects may I notice from receiving this medicine? Side effects that you should report to your doctor or health career development facilitator as soon as possible: allergic reactions like skin rash, itching or hives, swelling of the face, lips, or tongue breathing problems pain or trouble passing urine redness, blistering, peeling or loosening of the skin, including inside the mouth severe or watery diarrhea unusually weak or tired yellowing of the eyes, skin Side effects that usually do not require medical attention (report to your doctor or health career development facilitator if they continue or are bothersome): gas or heartburn genital or anal irritation headache joint or muscle pain nausea, vomiting What may interact with this medicine? probenecid some other antibiotics What if I miss a dose? If you miss a dose, take it as soon as you can. If it is almost time for your next dose, take only that dose. Do not take double or extra doses. There should be at least 4 to 6 hours between doses. Where should I keep my medicine? Keep out of the reach of children. Store at room temperature between 59 and 86 degrees F (15 and 30 degrees C). Throw away any unused medicine after the expiration date. What should I tell my health care provider before I take this medicine? They need to know if you have any of these conditions: kidney disease stomach or intestine problems, especially colitis an unusual or allergic reaction to cephalexin, other cephalosporins, penicillins, other antibiotics, medicines, foods, dyes or preservatives or trying to get breast-feeding What should I watch for while using this medicine? Tell your doctor or health career development facilitator if your symptoms do not begin to improve in a few days. Do not treat diarrhea with over the counter products. Contact your doctor if you have diarrhea that lasts more than 2 days or if it is severe and watery. If you have diabetes, you may get a false-positive result for sugar in your urine. Check with your doctor or health career development facilitator. Promethazine Hydrochloride Oral tablet What is this medicine? PROMETHAZINE (proe METH a zeen) is an antihistamine. It is used to treat allergic reactions and to treat or prevent nausea and vomiting from illness or motion sickness. It is also used to make you sleep before surgery, and to help treat pain or nausea after surgery. How should I use this medicine? Take this medicine by mouth with a glass of water. Follow the directions on the prescription label. Take your doses at regular intervals. Do not take your medicine more often than directed. Talk to your debt and budget counselor regarding the use of this medicine in children. Special care may be needed. This medicine should not be given to infants and children younger than 2 years old. What side effects may I notice from receiving this medicine? Side effects that you should report to your doctor or health career development facilitator as soon as possible: blurred vision irregular heartbeat, palpitations or chest pain muscle or facial twitches pain or difficulty passing urine seizures skin rash slowed or shallow breathing unusual bleeding or bruising yellowing of the eyes or skin Side effects that usually do not require medical attention (report to your doctor or health career development facilitator if they continue or are bothersome): headache nightmares, agitation, nervousness, excitability, not able to sleep (these are more likely in children) stuffy nose What may interact with this medicine? Do not take this medicine with any of the following medications: medicines called MAO Inhibitors like Nardil, Parnate, Marplan, Eldepryl other phenothiazines like trimethobenzamide This medicine may also interact with the following medications: barbiturates like phenobarbital bromocriptine certain antidepressants certain antihistamines used in allergy or cold medicines epinephrine levodopa medicines for sleep medicines for mental problems and psychotic disturbances medicines for movement abnormalities as in Parkinson's disease, or for gastrointestinal problems muscle relaxants prescription pain medicines What if I miss a dose? If you miss a dose, take it as soon as you can. If it is almost time for your next dose, take only that dose. Do not take double or extra doses. Where should I keep my medicine? Keep out of the reach of children. Store at room temperature, between 20 and 25 degrees C (68 and 77 degrees F). Protect from light. Throw away any unused medicine after the expiration date. What should I tell my health care provider before I take this medicine? They need to know if you have any of these conditions: glaucoma high blood pressure or heart disease kidney disease liver disease lung or breathing disease, like asthma prostate trouble pain or difficulty passing urine seizures an unusual or allergic reaction to promethazine or phenothiazines, other medicines, foods, dyes, or preservatives or trying to get breast-feeding What should I watch for while using this medicine? Tell your doctor or health career development facilitator if your symptoms do not start to get better in 1 to 2 days. You may get drowsy or dizzy. Do not drive, use machinery, or do anything that needs mental alertness until you know how this medicine affects you. To reduce the risk of dizzy or fainting spells, do not stand or sit up quickly, especially if you are an older patient. Alcohol may increase dizziness and drowsiness. Avoid alcoholic drinks. Your mouth may get dry. Chewing sugarless gum or sucking hard candy, and drinking plenty of water may help. Contact your doctor if the problem does not go away or is severe. This medicine may cause dry eyes and blurred vision. If you wear contact lenses you may feel some discomfort. Lubricating drops may help. See your eye doctor if the problem does not go away or is severe. This medicine can make you more sensitive to the sun. Keep out of the sun. If you cannot avoid being in the sun, wear protective clothing and use sunscreen. Do not use sun lamps or tanning beds/booths. If you are diabetic, check your blood-sugar levels regularly. You have been given the following additional information: Cellulitis MRSA Skin Infection, Suspected Or Confirmed Clindamycin Hydrochloride Oral capsule Cephalexin Monohydrate Oral tablet Promethazine Hydrochloride Oral tablet (Electronically signed by gL Villagomez Dr. 04/28/2017 9:33)
--- NOTE | 2017-04-29 17:45 | ED MAR SUMMARY ---
..... Medication Administration Record [facility] [address] [place] [address] Patient: JESIKA OLIVA Visit ID: [id number] 26y, F Weight: 49.4 kg Height/Length: 58 in BMI: 22.8 ALLERGIES: None Given 13:48 04/25/2017 Ayan Thompson RLesterNLester Medication Administered: KEFLEX [PO] (CEPHALEXIN), Dose: 500 mg PO. Medication Ordered: Keflex PO 500 mg (NOW). Given 13:49 04/25/2017 Ayan Thompson RLesterNLester Medication Administered: CLINDAMYCIN [PO], Dose: 450 mg PO. Medication Ordered: Clindamycin PO 450 mg (NOW). Given 13:49 04/25/2017 Ayan Thompson, R.NLester Medication Administered: PHENERGAN [PO] (PROMETHAZINE HCL), Dose: 25 mg PO. Medication Ordered: Phenergan PO 25 mg (HIGH ALERT MEDICATION, NOW).
--- NOTE | 2017-04-29 17:45 | ED MED RECONCILIATION SUMMARY ---
Patient: JESIKA OLIVA Medication Reconciliation Report [facility] VisitID: [id number] [place] [address] 26y, F Registration Date/Time: 04/25/2017 Weight: 49.4 kg Height/Length: 58 in. BMI: 22.8 ALLERGIES: None The patient's Home Medications are listed below: CONTINUE TAKING THE FOLLOWING MEDICATIONS: Methadone HCl Oral 30 mg , daily Vitamins Oral The source(s) of the original Home Medication information: Not obtained. The following Medications were given to the patient in the Emergency Department: Keflex [PO] PO 500 mg, administered: 04/25/2017 1:48:00 PM Clindamycin [PO] PO 450 mg, administered: 04/25/2017 1:49:00 PM Phenergan [PO] PO 25 mg, administered: 04/25/2017 1:49:00 PM The following Medications were prescribed to the patient: Clindamycin 150 mg: take 3 capsules orally every 8 hours for 10 days. No refill.(disp suff quant) -- Lg Villagomez Dr. Keflex 500 mg: take 1 capsule orally every 8 hours for 10 days. No refill. Substitution is permissible.(disp suff quant) -- Lg Villagomez Dr. Phenergan Tablets 25 mg: take 1 tablet orally every 8 hours as needed for nausea and vomiting. Dispense thirty (30). No refill. Substitution is permissible -- Lg Villagomez Dr.
== END 2017-04-25 13:59 | disposition home or self-care (01) ==
LOC: ED SRH 13:27
DX: L03.114 Cellulitis of left upper limb (principal)